=== PATIENT | female | born 1980 | race Caucasian/White ===

== ENCOUNTER 2016-05-18 09:15 | Emergency (ER) | payer OTHER ==
[~2016-05-18] VITALS: Ht 142.2 cm; Wt 55.8 kg
[2016-05-18 09:23] VITALS: BP 138/74
[2016-05-18] MEDS ORDERED: HYDR25CA1 PO (09:27)
[2016-05-18] MEDS ORDERED: SULF-58 PO (09:27)
--- NOTE | 2016-05-18 10:06 | NUR ---
Patient ambulated to bed 03.
--- NOTE | 2016-05-18 10:06 | NUR ---
PATIENT PRESENTS TO ED WITH RASH THROUGH OUT BODY W MODERATE TO SEVERE PRURITUS . PT STATES . DENIES N/V/D; SKIN IS PINK/WARM/DRY; AAOX4 WITH EVEN AND STEADY GAIT; LUNGS CLEAR BL; HR EVEN AND REGULAR; PT DENIES ANY FEVER, CP, SOB, OR COUGH AT THIS TIME; PATIENT STATES PAIN OF 0/10 AT THIS TIME; VSS; PATIENT POSITIONED FOR COMFORT; HOB ELEVATED; BEDRAILS UP X2; BED DOWN. ER MD MADE AWARE OF PT STATUS.
--- NOTE | 2016-05-18 11:22 | NUR ---
Wilder koenig in [facility] - 05/18/16 at [address] Sanabria evaluating patient at bedside.
[2016-05-18] MEDS ORDERED: diphenhydrAMINE 50 MG/ML VIAL IM ONE (11:45)
[2016-05-18] MEDS ORDERED: hydrOXYzine 50 MG/ML VIAL IM ONE (11:45)
[2016-05-18] MEDS ORDERED: methylPREDNISolone SS 125 MG in WATER STERILE 2 ML IM ONE (11:45)
[2016-05-18] MEDS ORDERED: FAMOTIDINE 20 MG TAB PO ONE (11:45)
--- NOTE | 2016-05-18 12:35 | NUR ---
MEDICATED, WRITTEN---DC HOME INSTRUCTIONS GIVEN TO PT AND . VERBALIZED UNDERSTANDING.
--- NOTE | 2016-05-18 12:48 | NUR ---
Patient discharged with v/s stable. Written and verbal after care instructions given and explained. Patient alert, oriented and verbalized understanding of instructions. Ambulatory with steady gait. All questions addressed prior to discharge. ID band removed. Patient advised to follow up with PMD. Rx of BENADRYL/ PEPCID/MEDROL/EPIPEN given. Patient educated on indication of medication including possible reaction and side effects. Opportunity to ask questions provided and answered.
[2016-05-18 12:54] VITALS: BP 121/65
== END 2016-05-18 12:48 | disposition home or self-care (01) ==
LOC: MED 09:15
PROC: 3E033GC Introduction of Other Therapeutic Substance into Peripheral Vein, Percutaneous Approach (ICD-10-PCS; principal; 2016-05-18)
DX: T78.40XA Allergy, unspecified, initial encounter (principal); L29.9 Pruritus, unspecified; L91.0 Hypertrophic scar; L90.5 Scar conditions and fibrosis of skin
CPT/HCPCS: 96372; 99284; J1200; J2930; J3410

== ENCOUNTER 2016-07-30 07:26 | Emergency (ER) | payer OTHER ==
[~2016-07-30] VITALS: Ht 154.9 cm; Wt 55.3 kg
[~2016-07-30 07:26] MED LIST: HYDR25CA1 PO; SULF-58 PO
[2016-07-30 07:36] VITALS: BP 118/67
[2016-07-30] MEDS ORDERED: [UNRECOGNIZED DRUG - CODE] PO (07:48)
[2016-07-30] MEDS ORDERED: PRED20TA5 PO (07:48)
[2016-07-30] MEDS ORDERED: DIPH25CA86 PO (07:48)
[2016-07-30] MEDS ORDERED: CEPH500C16 PO (07:48)
[2016-07-30] MEDS ORDERED: PHEN95TA24 PO (07:48)
--- NOTE | 2016-07-30 07:49 | NUR ---
Patient ambulated to bed 6 after providing a urine specimen. RN evaluating patient at bedside.
--- NOTE | 2016-07-30 07:50 | NUR ---
35/F C/O L FLANK PAIN X1WK. DENIES N/V/FEVER. DENIES HX. PT GUARDING WITH SOB R/T PAIN NOTED. RECEVIED RX MEDS FOR UTI.SKIN IS PINK/WARM/DRY; AAOX4 WITH EVEN AND STEADY GAIT; LUNGS CLEAR BL; HR EVEN AND REGULAR; PT DENIES ANY FEVER, CP, SOB, OR COUGH AT THIS TIME; PATIENT STATES PAIN OF 10/10 AT THIS TIME; VSS; PATIENT POSITIONED FOR COMFORT; HOB ELEVATED; BEDRAILS UP X2; BED DOWN. ER MD MADE AWARE OF PT STATUS.
[2016-07-30 08:13] LABS: BASOPHILS # (AUTO) 0.1 K/uL (0.00-0.22); BASOPHILS % (AUTO) 2.5 % (0.0-2.0); EOSINOPHILS # (AUTO) 0.4 K/uL (0-0.4); EOSINOPHILS % (AUTO) 7.7 % (0.0-4.0); HEMOGLOBIN 14.7 g/dL (12.0-16.0); LYMPHOCYTES # (AUTO) 1.4 K/uL (2.5-16.5); LYMPHOCYTES % (AUTO) 24.3 % (20.5-51.1); MEAN CORPUSCULAR HEMOGLOBIN 32 pg (27-31); MEAN CORPUSCULAR HGB CONC 34 g/dL (33-37); MEAN CORPUSCULAR VOLUME 93 fL (80-94); MONOCYTES # (AUTO) 0.5 K/uL (0.8-1.0); MONOCYTES % (AUTO) 9.6 % (1.7-9.3); NEUTROPHILS # (AUTO) 3.3 K/uL (1.8-7.7); NEUTROPHILS % (AUTO) 55.9 % (42.2-75.2); PLATELET COUNT (AUTO) 229 K/uL (140-450); RED BLOOD CELL COUNT(AUTO) 4.64 MIL/uL (4.20-5.40); RED CELL DISTRIBUTION WIDTH 13.1 % (11.6-13.7); WHITE BLOOD COUNT (AUTO) 5.7 K/uL (4.8-10.8)
[2016-07-30 08:17] LABS: APPEARANCE,URINE HAZY (CLEAR); BILIRUBIN,URINE NEGATIVE (NEGATIVE); BLOOD, URINE 3+ (NEGATIVE); COLOR,URINE RED (YELLOW); LEUKOCYTE ESTERASE ,URINE TRACE (NEGATIVE); NITRITE, URINE NEGATIVE (NEGATIVE); PH,URINE 7.5 (5.0-9.0); PROTEIN,URINE TRACE (NEGATIVE); UGLUCOSE NEGATIVE (NEGATIVE); UROBILINOGEN,URINE 0.2 EU/dL (0.2 - 1)
[2016-07-30] MEDS: KETOROLAC 30 MG/ML VIAL IVP ONE (08:22)
[2016-07-30] MEDS: NACL 0.9% 1,000 ML IV ONE (08:23)
[2016-07-30] MEDS: ONDANSETRON 4 MG/2 ML VIAL IVP ONE (08:23)
--- NOTE | 2016-07-30 08:24 | NUR ---
PT TAKEN TO CT VIA W/C ACCOMPANIED BY AUTOMATIC TIRE TESTER
[2016-07-30 08:32] LABS: ANION GAP 13.1 (8-16); CARBON DIOXIDE 28.8 mmol/L (21-32); CREATININE 0.7 mg/dL (0.6-1.3); POTASSIUM 3.9 mmol/L (3.5-5.1); TOTAL BILIRUBIN 0.6 mg/dL (0.0-1.0); TOTAL PROTEIN, SERUM 7.8 g/dL (6.4-8.2)
[2016-07-30 08:50] LABS: BACTERIA,URINE None Seen /HPF (None Seen); RBC,URINE TOO NUMEROUS TO COUN /HPF (0-5); SQUAMOUS EPITHELIAL CELL,UR 0-3 (FEW) /LPF (0-3 (FEW)); WBC,URINE NONE SEEN /HPF (0-5)
[2016-07-30 10:50] VITALS: BP 117/75
--- NOTE | 2016-07-30 10:50 | NUR ---
Patient discharged with v/s stable. Written and verbal after care instructions given and explained. Patient alert, oriented and verbalized understanding of instructions. Ambulatory with steady gait. All questions addressed prior to discharge. ID band removed. Patient advised to follow up with PMD. Rx of ZOFRAN & MOTRIN given. Patient educated on indication of medication including possible reaction and side effects. Opportunity to ask questions provided and answered.
== END 2016-07-30 10:50 | disposition home or self-care (01) ==
LOC: MED 07:26
DX: R31.9 Hematuria, unspecified (principal)
CPT/HCPCS: 36415; 74176; 80053; 81001; 81025; 82150; 83690; 84703; 85025; 96361; 96374; 96375; 99285; J1885; J2405; J7030

== ENCOUNTER 2017-04-22 14:11 | Emergency (ER) | payer OTHER ==
[~2017-04-22] VITALS: Ht 139.7 cm; Wt 52.2 kg
[~2017-04-22 14:11] MED LIST changes: +CEPH500C16 PO; +DIPH25CA86 PO; +HYDR-1090 PO; -HYDR25CA1 PO; +PHEN95TA24 PO; +PRED20TA5 PO; -SULF-58 PO
[2017-04-22 14:33] VITALS: BP 119/72
--- NOTE | 2017-04-22 14:44 | NUR ---
PT PLACED IN BED 11.
[2017-04-22 15:26] LABS: APPEARANCE,URINE CLEAR (CLEAR); BILIRUBIN,URINE NEGATIVE (NEGATIVE); BLOOD, URINE NEGATIVE (NEGATIVE); LEUKOCYTE ESTERASE ,URINE 1+ (NEGATIVE); NITRITE, URINE NEGATIVE (NEGATIVE); UGLUCOSE NEGATIVE (NEGATIVE)
[2017-04-22 15:27] LABS: BASOPHILS # (AUTO) 0.2 K/uL (0.00-0.22); EOSINOPHILS # (AUTO) 0.1 K/uL (0-0.4); HEMATOCRIT 43.9 % (36-48); HEMOGLOBIN 14.6 g/dL (12.0-16.0); LYMPHOCYTES # (AUTO) 1.9 K/uL (2.5-16.5); MEAN CORPUSCULAR HEMOGLOBIN 31 pg (27-31); MEAN CORPUSCULAR HGB CONC 33 g/dL (33-37); MEAN CORPUSCULAR VOLUME 93 fL (80-94); MONOCYTES # (AUTO) 0.6 K/uL (0.8-1.0); NEUTROPHILS # (AUTO) 3.7 K/uL (1.8-7.7); PLATELET COUNT (AUTO) 242 K/uL (140-450); RED BLOOD CELL COUNT(AUTO) 4.74 MIL/uL (4.20-5.40); RED CELL DISTRIBUTION WIDTH 12.5 % (11.6-13.7); WHITE BLOOD COUNT (AUTO) 6.5 K/uL (4.8-10.8)
[2017-04-22 15:38] LABS: COLOR,URINE STRAW (YELLOW); RBC,URINE NONE SEEN /HPF (0-5); WBC,URINE 0-5 (RARE) /HPF (0-5)
--- NOTE | 2017-04-22 15:40 | NUR ---
US AT BEDSIDE.
--- NOTE | 2017-04-22 15:41 | NUR ---
PATIENT PRESENTS TO ED WITH C.O VAGINAL PAIN W/ BLISTERS X 3 DAYS .DENIES ANY MEDICAL HX ;DENIES ANY BLEEING;DENIES N/V/D; SKIN IS PINK/WARM/DRY; AAOX4 WITH EVEN AND STEADY GAIT; LUNGS CLEAR BL; HR EVEN AND REGULAR; PT DENIES ANY FEVER, CP, SOB, OR COUGH AT THIS TIME; PATIENT STATES PAIN OF 10/10 AT THIS TIME;PATIENT POSITIONED FOR COMFORT; HOB ELEVATED; BEDRAILS UP X2; BED DOWN. ER MD MADE AWARE OF PT STATUS.
[2017-04-22 15:42] LABS: PROTHROMBIN TIME 10.1 secs (10.8-13.4)
[2017-04-22 15:46] LABS: ALBUMIN 4.3 g/dL (3.4-5.0); ANION GAP 11.2 (8-16); CARBON DIOXIDE 30.7 mmol/L (21-32); CREATININE 0.5 mg/dL (0.6-1.3); POTASSIUM 3.9 mmol/L (3.5-5.1); TOTAL BILIRUBIN 0.3 mg/dL (0.0-1.0)
[2017-04-22 18:10] VITALS: BP 132/78
--- NOTE | 2017-04-22 18:10 | NUR ---
Patient discharged with v/s stable. Written and verbal after care instructions given and explained. Patient alert, oriented and verbalized understanding of instructions. Ambulatory with steady gait. All questions addressed prior to discharge. ID band removed. Patient advised to follow up with PMD. Rx of TRAMADOL AND GYNE-LOTRIMIN 1 % given. Patient educated on indication of medication including possible reaction and side effects. Opportunity to ask questions provided and answered.
== END 2017-04-22 18:10 | disposition home or self-care (01) ==
LOC: MED 14:11
DX: N76.0 Acute vaginitis (principal); Z79.899 Other long term (current) drug therapy
CPT/HCPCS: 36415; 76830; 80053; 81001; 81025; 82150; 83690; 85025; 85610; 85730; 87086; 99285; Q0092

== ENCOUNTER 2018-12-11 07:13 | Emergency (ER) | payer OTHER ==
[~2018-12-11] VITALS: Ht 157.5 cm; Wt 54.0 kg
--- NOTE | 2018-12-11 07:24 | NUR ---
PATIENT AMBULATED TO BED 06.
[2018-12-11 07:31] VITALS: BP 113/68
--- NOTE | 2018-12-11 07:40 | NUR ---
C/O LEFT FLANK PAIN X3 DAYS WITH DYSURIA. PT WAS PLACED ON ACYCLOVIR 400MG TID AND PYRIDIUM 200MG TID HX KIDNEY INFECTIONS . DENIES N/V/D; SKIN IS PINK/WARM/DRY; AAOX4 WITH EVEN AND STEADY GAIT; LUNGS CLEAR BL; HR EVEN AND REGULAR; PT DENIES ANY FEVER, CP, SOB, OR COUGH AT THIS TIME; PATIENT STATES PAIN OF 10/10 AT THIS TIME; VSS; PATIENT POSITIONED FOR COMFORT; HOB ELEVATED; BEDRAILS UP X2; BED DOWN. ER MD MADE AWARE OF PT STATUS.
--- NOTE | 2018-12-11 07:48 | NUR ---
Dr. Lyle evaluating patient at bedside.
--- NOTE | 2018-12-11 08:25 | NUR ---
Pelvic exam performed by Dr. Lyle with myself at bedside for entire examination. Patient tolerated procedure well. Patient assisted to position of comfort after examination. Specimens sent to lab.
[2018-12-11] MEDS ORDERED: cefTRIAXone 1,000 MG in LIDOCAINE MPF 1% 2.1 ML IM ONE (08:35)
[2018-12-11 09:35] LABS: APPEARANCE,URINE CLEAR (CLEAR); BILIRUBIN,URINE NEGATIVE (NEGATIVE); BLOOD, URINE TRACE-L (NEGATIVE); COLOR,URINE YELLOW (YELLOW); LEUKOCYTE ESTERASE ,URINE 2+ (NEGATIVE); NITRITE, URINE POSITIVE (NEGATIVE); UGLUCOSE NEGATIVE (NEGATIVE)
[2018-12-11 09:43] LABS: RBC,URINE NONE SEEN /HPF (0-5)
[2018-12-11 09:59] VITALS: BP 115/67
== END 2018-12-11 09:59 | disposition home or self-care (01) ==
LOC: MED 07:13
DX: N39.0 Urinary tract infection, site not specified (principal); Z79.2 Long term (current) use of antibiotics; Z79.899 Other long term (current) drug therapy
CPT/HCPCS: 36415; 81001; 81025; 87086; 87210; 96372; 99283; J0696; J2001

== ENCOUNTER 2019-12-05 14:02 | Emergency (ER) | payer OTHER ==
[~2019-12-05] VITALS: Ht 121.9 cm; Wt 53.1 kg
[2019-12-05 14:17] VITALS: BP 132/74
--- NOTE | 2019-12-05 14:42 | NUR ---
39 y/o female from home c/o right sided facial drooping x 1 wk. No focal weakness/numbness. Denies nausea/vomiting. Afebrile at this time. Pt able to ambulate without difficulty. C/o right sided headache. BLurred vision in left eye, normal for pt. Awake and alert. Denies trauma/injury. Denies cold symptoms. Positioned for comfort.
--- NOTE | 2019-12-05 14:43 | NUR ---
Dr Reich at bedside examining pt
[2019-12-05] MEDS ORDERED: IBUPROFEN 400 MG TAB PO ONE (15:00)
[2019-12-05 15:06] VITALS: BP 132/74
--- NOTE | 2019-12-05 15:06 | NUR ---
Patient discharged with v/s stable. Written and verbal after care instructions given and explained. Patient alert, oriented and verbalized understanding of instructions. Ambulatory with steady gait. All questions addressed prior to discharge. ID band removed. Patient advised to follow up with PMD. Rx of Naprosyn 375mg, Artifical tears, Valacyclovir 1g, and Prednisone 20mg given. Patient educated on indication of medication including possible reaction and side effects. Opportunity to ask questions provided and answered.
== END 2019-12-05 15:06 | disposition home or self-care (01) ==
LOC: MED 14:02
DX: G51.0 Bell's palsy (principal); Z87.448 Personal history of other diseases of urinary system; Z79.899 Other long term (current) drug therapy
CPT/HCPCS: 99283

== ENCOUNTER 2021-03-15 09:49 | Emergency (ER) | payer OTHER ==
[~2021-03-15] VITALS: Ht 149.9 cm; Wt 54.4 kg
[~2021-03-15 09:49] MED LIST changes: -DIPH25CA86 PO; +[UNRECOGNIZED DRUG - CODE] PO
[2021-03-15 10:20] VITALS: BP 107/65
[2021-03-15] MEDS ORDERED: NAPR-1704 PO (10:21)
[2021-03-15 10:43] VITALS: BP 107/65
--- NOTE | 2021-03-15 10:43 | NUR ---
Patient discharged with v/s stable. Written and verbal after care instructions given and explained. Patient alert, oriented and verbalized understanding of instructions. Ambulatory with steady gait. All questions addressed prior to discharge. ID band removed. Patient advised to follow up with PMD. Rx of naproxen (sent) given. Patient educated on indication of medication including possible reaction and side effects. Opportunity to ask questions provided and answered.
--- NOTE | 2021-03-15 10:43 | NUR ---
novel was swabbed
== END 2021-03-15 10:43 | disposition home or self-care (01) ==
LOC: MED 09:49
DX: U07.1 COVID-19 (principal)
CPT/HCPCS: 99283; U0003

== ENCOUNTER 2021-06-24 08:00 | Emergency (ER) | payer OTHER ==
[~2021-06-24] VITALS: Ht 144.8 cm; Wt 58.1 kg
[~2021-06-24 08:00] MED LIST changes: +NAPR-1704 PO
[2021-06-24 08:07] VITALS: BP 114/70
[2021-06-24] MEDS ORDERED: LACTULOSE 20 GM/30 ML UDC PO ONE (08:45)
[2021-06-24] MEDS ORDERED: ALUMINUM HYD/MAG/SIMETHICONE 30 ML UDC PO ONE (08:45)
--- NOTE | 2021-06-24 08:50 | NUR ---
PT AMBULATED TO RESTROOM FOR URINE SAMPLE
--- NOTE | 2021-06-24 09:00 | NUR ---
40/F BIB SELF WITH C/O ABDOMINAL PAIN AND NAUSEA, STATES SHE HAS BEEN UNABLE TO HAVE A BOWEL MOVEMENT FOR TWO DAYS. REPORTS SHE HAS BEEN STRAINING AND NOTICED BLOOD THIS MORNING. SKIN IS PINK/WARM/DRY; AAOX4 WITH EVEN AND STEADY GAIT; LUNGS CLEAR BL; HR EVEN AND REGULAR; PT DENIES ANY FEVER, CP, SOB, OR COUGH AT THIS TIME; PATIENT STATES PAIN OF 8/10 AT THIS TIME; VSS; PATIENT POSITIONED FOR COMFORT; HOB ELEVATED; BEDRAILS UP X2; BED DOWN. ER MD MADE AWARE OF PT STATUS. MEDHX: HTN ALLERGIES: NKA
--- NOTE | 2021-06-24 09:00 | NUR ---
Unable to obtain EKG, ultrasound at bedside.
[2021-06-24 09:31] LABS: BASOPHILS % (AUTO) 0.1 % (0.0-2.0); EOSINOPHILS # (AUTO) 0.1 K/uL (0-0.4); EOSINOPHILS % (AUTO) 0.7 % (0.0-4.0); HEMATOCRIT 41.3 % (36-48); HEMOGLOBIN 14.1 g/dL (12.0-16.0); LYMPHOCYTES # (AUTO) 0.5 K/uL (2.5-16.5); LYMPHOCYTES % (AUTO) 4.7 % (20.5-51.1); MEAN CORPUSCULAR HEMOGLOBIN 32 pg (27-31); MEAN CORPUSCULAR HGB CONC 34 g/dL (33-37); MEAN CORPUSCULAR VOLUME 92.3 fL (80-94); MONOCYTES # (AUTO) 0.3 K/uL (0.8-1.0); MONOCYTES % (AUTO) 2.7 % (1.7-9.3); NEUTROPHILS # (AUTO) 10.2 K/uL (1.8-7.7); NEUTROPHILS % (AUTO) 91.8 % (42.2-75.2); PLATELET COUNT (AUTO) 189 K/uL (140-450); RED BLOOD CELL COUNT(AUTO) 4.47 MIL/uL (4.20-5.40); RED CELL DISTRIBUTION WIDTH 13.5 % (11.6-13.7); WHITE BLOOD COUNT (AUTO) 11.1 K/uL (4.8-10.8)
[2021-06-24 09:53] LABS: ALBUMIN 3.9 g/dL (3.4-5.0); ANION GAP 11.9 (8-16); CARBON DIOXIDE 24.3 mmol/L (21-32); CREATININE 0.6 mg/dL (0.6-1.3); POTASSIUM 4.2 mmol/L (3.5-5.1)
[2021-06-24] MEDS ORDERED: LACT10SO86 PO (10:07)
[2021-06-24] MEDS ORDERED: DOCU-299 PO (10:07)
[2021-06-24] MEDS ORDERED: CEPH-588 PO ×2 (10:10→10:12)
[2021-06-24 10:41] VITALS: BP 114/70
--- NOTE | 2021-06-24 10:41 | NUR ---
Patient discharged with v/s stable. Written and verbal after care instructions given and explained. Patient alert, oriented and verbalized understanding of instructions. Ambulatory with steady gait. All questions addressed prior to discharge. ID band removed. Patient advised to follow up with PMD. Rx of KEFLEX, COLACE, LACTULOSE given. Patient educated on indication of medication including possible reaction and side effects. Opportunity to ask questions provided and answered.
== END 2021-06-24 10:41 | disposition home or self-care (01) ==
LOC: MED 08:00
DX: K59.00 Constipation, unspecified (principal); N12 Tubulo-interstitial nephritis, not specified as acute or chronic; R10.13 Epigastric pain; Z79.899 Other long term (current) drug therapy
CPT/HCPCS: 36415; 76700; 80053; 81002; 81025; 83690; 85025; 93005; 99285; Q0092

== ENCOUNTER 2023-07-18 12:15 | Emergency (ER) | payer OTHER ==
[~2023-07-18] VITALS: Ht 139.7 cm; Wt 60.3 kg
[~2023-07-18 12:15] MED LIST changes: +CEPH-588 PO; +DOCU-299 PO; +LACT-85 PO; +[UNRECOGNIZED DRUG - CODE] PO; -[UNRECOGNIZED DRUG - CODE] PO
[2023-07-18 12:16] VITALS: BP 130/74; PULSE 68; RESP 16; TEMP 97.5; O2SAT 100
[2023-07-18 12:51] LABS: BASOPHILS % (AUTO) 0.5 % (0.0-2.0); EOSINOPHILS # (AUTO) 0.1 K/uL (0-0.4); EOSINOPHILS % (AUTO) 1.8 % (0.0-4.0); HEMATOCRIT 42.1 % (36-48); HEMOGLOBIN 14.5 g/dL (12.0-16.0); LYMPHOCYTES % (AUTO) 37.1 % (20.5-51.1); MEAN CORPUSCULAR HEMOGLOBIN 33 pg (27-31); MEAN CORPUSCULAR HGB CONC 35 g/dL (33-37); MEAN CORPUSCULAR VOLUME 94.3 fL (80-94); MONOCYTES # (AUTO) 0.4 K/uL (0.8-1.0); MONOCYTES % (AUTO) 7.4 % (1.7-9.3); NEUTROPHILS # (AUTO) 2.8 K/uL (1.8-7.7); NEUTROPHILS % (AUTO) 53.2 % (42.2-75.2); PLATELET COUNT (AUTO) 229 K/uL (140-450); RED BLOOD CELL COUNT(AUTO) 4.47 MIL/uL (4.20-5.40); RED CELL DISTRIBUTION WIDTH 13.7 % (11.6-13.7); WHITE BLOOD COUNT (AUTO) 5.3 K/uL (4.8-10.8)
[2023-07-18] MEDS: FAMOTIDINE 20 MG/2 ML VIAL IVP ONE (12:56)
[2023-07-18] MEDS: NACL 0.9% 1,000 ML IV ONE (12:57)
[2023-07-18 12:59] LABS: ANION GAP 13.8 (8-16); CALCIUM 9.3 mg/dL (8.5-10.1); CREATININE 0.6 mg/dL (0.6-1.3); POTASSIUM 3.8 mmol/L (3.5-5.1)
[2023-07-18] MEDS: KETOROLAC 30 MG/ML VIAL IVP ONE (13:30)
[2023-07-18 13:36] LABS: ALBUMIN 4.4 g/dL (3.4-5.0); BILIRUBIN,DIRECT 0.1 mg/dL (0.0-0.3); TOTAL BILIRUBIN 0.8 mg/dL (0.0-1.0); TOTAL PROTEIN, SERUM 7.7 g/dL (6.4-8.2)
[2023-07-18 13:48] LABS: APPEARANCE,URINE CLEAR (CLEAR); BILIRUBIN,URINE NEGATIVE (NEGATIVE); BLOOD, URINE 3+ (NEGATIVE); COLOR,URINE YELLOW (YELLOW); LEUKOCYTE ESTERASE ,URINE NEGATIVE (NEGATIVE); NITRITE, URINE NEGATIVE (NEGATIVE); PROTEIN,URINE NEGATIVE (NEGATIVE); UGLUCOSE NEGATIVE (NEGATIVE); UROBILINOGEN,URINE 0.2 EU/dL (0.2 - 1)
[2023-07-18 14:22] LABS: BACTERIA,URINE FEW /HPF (None Seen); RBC,URINE 11-20 (MOD) /HPF (0-5); WBC,URINE 0-5 /HPF (0-5)
[2023-07-18 14:23] LABS: MUCUS,URINE None Seen /LPF (None Seen); SQUAMOUS EPITHELIAL CELL,UR 0-3 (FEW) /LPF (0-3 (FEW)); TRICHOMONAS,URINE None Seen /HPF (None Seen); WHITE BLOOD CELL CASTS,URINE None Seen /LPF (None Seen); YEAST,URINE None Seen /HPF (None Seen)
[2023-07-18] MEDS ORDERED: POLY17PD72 PO (16:02)
[2023-07-18 16:15] VITALS: BP 121/69; PULSE 67; RESP 45; TEMP 97.5; O2SAT 100
== END 2023-07-18 16:13 | disposition home or self-care (01) ==
LOC: MED 12:15
DX: R10.84 Generalized abdominal pain (principal); R07.9 Chest pain, unspecified; K59.00 Constipation, unspecified; I10 Essential (primary) hypertension; N28.9 Disorder of kidney and ureter, unspecified; Z79.899 Other long term (current) drug therapy
CPT/HCPCS: 36415; 74176; 80048; 80076; 81001; 81025; 82150; 83690; 84484; 85025; 93005; 96361; 96374; 96375; 99285; J1885; J3490; J7030